=== PATIENT | female | born 1975 | race Asian ===

== ENCOUNTER 2017-06-27 02:46 | Emergency (ER) | payer BC ==
[2017-06-27] MEDS ORDERED: NS 0.9% 1000 ML* 1,000 ML IV ONE (03:10)
[2017-06-27] MEDS ORDERED: Al Hydrox/Mg Hydrox/Simet LIQ* 30 ML UDC PO ONE (03:10)
[2017-06-27] MEDS ORDERED: Lidocaine 2% VISCOUS* 15 ML UDC PO ONE (03:10)
--- NOTE | 2017-06-27 04:02 | ED ---
Perri Almanza Rebecca, scribed for Jeffrey Vo MD on 06/27/17 at 0314 . HPI Chest Pain - HPI Summary HPI Summary: Pt is a 42 y/o F who presents to ED c/o CP. 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 Pain is currently moderate , ranked 7/10 and located in the midsternum with radiation to the upper back. States "it just didn't feel right." Sx aggravated and alleviated by nothing, unchanged by deep breaths and sitting up. Additionally notes decreased appetite last night and diffuse, pruritic hives last night that were resolved by medication. Denies SOB. No prior similar episodes of pain. - History of Current Complaint Chief Complaint: EDChestPainROMI Time Seen by Provider: 06/27/17 03:03 Hx Obtained From: Patient Onset/Duration: Started Hours Ago, Still Present Time of Onset: 02:00 Current Severity: Moderate Pain Intensity: 7 Pain Scale Used: 0-10 Numeric Chest Pain Location: Mid Sternal Chest Pain Radiates: Yes Chest Pain Radiates To:: Back - Upper Aggravating Factor(s): Nothing Alleviating Factor(s): Nothing Associated Signs and Symptoms: Positive: Other: - Decreased appetite and diffuse , pruritic hives last night. Negative: Shortness of Breath - Allergy/Home Medications Allergies/Adverse Reactions: Allergies Allergy/AdvReac Type Severity Reaction Status Date / Time No Known Allergies Allergy Verified 06/27/17 02:49 PMH/Surg Hx/FS Hx/Imm Hx Endocrine/Hematology History: Denies: Hx Diabetes Cardiovascular History: Denies: Hx Coronary Artery Disease, Hx Hypertension Infectious Disease History: No Infectious Disease History: Denies: Traveled Outside the [place] in Last 30 Days - Family History Known Family History: Negative: Cardiac Disease, Hypertension, Diabetes - Social History Alcohol Use: None Substance Use Type: Reports: None Smoking Status (MU): Never Smoked Tobacco Review of Systems Positive: Chest Pain Negative: Shortness Of Breath Positive: Other - Decreased appetite last night Positive: Other - Diffuse, pruritic hives last night All Other Systems Reviewed And Are Negative: Yes Physical Exam Triage Information Reviewed: Yes Vital Signs On Initial Exam: Initial Vitals Temp Pulse Resp BP Pulse Ox 97.9 F 71 20 114/75 100 06/27/17 02:52 06/27/17 02:52 06/27/17 02:52 06/27/17 02:52 06/27/17 02:52 Vital Signs Reviewed: Yes Appearance: Positive: No Pain Distress, Thin Skin: Positive: Warm Head/Face: Positive: Normal Head/Face Inspection Eyes: Positive: ANASTASIA ENT: Positive: Hearing grossly normal Neck: Positive: Supple Respiratory/Lung Sounds: Positive: Clear to Auscultation, Breath Sounds Present Cardiovascular: Positive: RRR Abdomen Description: Positive: Nontender, Soft. Negative: Distended, Guarding Bowel Sounds: Positive: Present Musculoskeletal: Positive: Strength/ROM Intact Neurological: Positive: Alert, Oriented to Person Place, Time, Normal Gait Psychiatric: Positive: Affect/Mood Appropriate Diagnostics - Vital Signs Vital Signs Temp Pulse Resp BP Pulse Ox 06/27/17 02:52 97.9 F 71 20 114/75 100 - Laboratory Result Diagrams: 06/27/17 03:40 06/27/17 03:40 Lab Statement: Any lab studies that have been ordered have been reviewed, and results considered in the medical decision making process. - EKG 0301 Cardiac Rate: NL - 78 bpm EKG Rhythm: Sinus Rhythm ST Segment: Non-Specific - Non-specific T abnormality Re-Evaluation - Re-Evaluation First Eval Change: Improved - pt remains pain free Chest Pain Course/Dx - Course Course Of Treatment: Pt is a 42 y/o F who presents to ED c/o CP. 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 Pain is currently moderate, ranked 7/10 and located in the midsternum with radiation to the upper back. States "it just didn't feel right." Sx aggravated and alleviated by nothing, unchanged by deep breaths and sitting up. Additionally notes decreased appetite last night and diffuse, pruritic hives last night that were resolved by medication. Denies SOB. No prior similar episodes of pain. EKG is sinus rhythm with non-specific T abnormality. In the ED course, pt was administered Maalox, Xylocaine and fluids. If troponin is negative, pt will be D /C to home with Dx of chest pain with a follow up with her PCP. She understands and agrees. - Diagnoses Provider Diagnoses: Chest pain Discharge - Discharge Plan Condition: Stable Disposition: HOME Patient Education Materials: Chest Pain (ED) Referrals: No Primary Care Phys,NOPCP [Primary Care Provider] - The documentation as recorded by the Perri corral Rebecca accurately reflects the service I personally performed and the decisions made by me, Jeffrey Vo MD.
[2017-06-27 04:24] LABS: Hematocrit 41 % (35-47); Hemoglobin 13.8 g/dl (12.0-16.0); Mean Corpuscular HGB Conc 34 g/dl (31-36); Mean Corpuscular Hemoglobin 31 pg (27-31); Mean Corpuscular Volume 90 fL (80-97); Mean Platelet Volume 8 um3 (7.4-10.4); Red Blood Count 4.52 10^6/ul (4.0-5.4); Red Cell Distribution Width 14 % (10.5-15); White Blood Count 5.8 10^3/ul (3.5-10.8)
[2017-06-27 04:34] LABS: ALT 16 U/L (7-52); AST 18 U/L (13-39); Albumin 4.4 g/dL (3.2-5.2); Alkaline Phosphatase 47 U/L (34-104); Anion Gap 4 mmol/L (2-11); BUN/Creatinine Ratio 19.7 (8-20); Blood Urea Nitrogen 15 mg/dL (6-24); C Reactive Protein < 1.00 mg/L (< 5.00); CO2 Carbon Dioxide 30 mmol/L (22-32); Calcium 9.4 mg/dL (8.6-10.3); Chloride 103 mmol/L (101-111); EGFR African American 107.9 (>60); EGFR Non-African American 83.9 (>60); Globulin 2.5 g/dL (2-4); Glucose 101 mg/dL (70-100); Lipase 17 U/L (11.0-82.0); Magnesium 2.1 mg/dL (1.9-2.7); Potassium 3.4 mmol/L (3.5-5.0); Sodium 137 mmol/L (133-145); Total Protein 6.9 g/dL (6.4-8.9)
[2017-06-27 06:48] LABS: Urine Bilirubin Negative (Negative); Urine Glucose Negative (Negative); Urine Nitrite Negative (Negative)
[2017-06-27 06:56] VITALS: BP 109/69
== END 2017-06-27 07:28 | disposition home or self-care (01) ==
LOC: ED 02:46
DX: R07.9 Chest pain, unspecified (principal)
CPT/HCPCS: 36415; 80053; 81003; 83690; 83735; 84484; 84702; 85025; 86140; 93005; 99282; A9270-GY